=== PATIENT | female | born 2000 | race Caucasian/White ===

== ENCOUNTER 2025-01-08 13:14 | Emergency (ER) | payer OTHER ==
[~2025-01-08] VITALS: Ht 160 cm; Wt 69.0 kg
[2025-01-08 13:16] VITALS: O2SAT 97
[2025-01-08 13:48] VITALS: BP 124/73; PULSE 85; RESP 20; O2SAT 100
[2025-01-08 14:21] LABS: BASOPHILS % 0.4 % (0.0-2.0); EOSINOPHILS % 0.1 % (0.0-5.0); HEMATOCRIT. 40.7 % (36.0-48.0); HEMOGLOBIN. 13.1 g/dL (12.0-16.0); LYMPHOCYTES % 17.6 % (20.0-50.0); MEAN CORPUSCULAR HEMOGLOBIN 26.7 pg (28.0-32.0); MEAN CORPUSCULAR HGB CONC 32.2 g/dL (31.0-37.0); MEAN CORPUSCULAR VOLUME 82.8 fL (81.0-99.0); MEAN PLATELET VOLUME 8.7 fl (7.4-10.4); NEUTROPHILS % 75.9 % (40.0-76.0); PLATELET 240 x1000/uL (130-400); RED BLOOD CELL COUNT 4.91 mill/uL (4.2-5.4); RED CELL DISTRIBUTION WIDTH 15.7 % (11.6-14.6); WHITE BLOOD COUNT 11.2 x1000/uL (4.5-11.0)
[2025-01-08 14:30] LABS: CARBON DIOXIDE 27 mEq/L (21-32); CHLORIDE 103 mEq/L (98-107); POTASSIUM 3.7 mEq/L (3.5-5.1); SODIUM 136 mEq/L (136-145)
[2025-01-08 14:31] LABS: CALCIUM 9.9 mg/dL (8.7-10.4)
[2025-01-08 14:33] LABS: HCG SCREEN POSITIVE
[2025-01-08 14:36] LABS: CREATININE 0.5 mg/dL (0.6-1.0); GLUCOSE 85 mg/dL (70-105); UREA NITROGEN BLOOD 5 mg/dL (9-23)
[2025-01-08 14:50] LABS: CLARITY URINE CLEAR (CLEAR); COLOR URINE YELLOW (YELLOW); GLUCOSE URINE NEGATIVE (NEGATIVE); KETONES URINE 2+ (NEGATIVE); LEUKOCYTE ESTERASE URINE TRACE (NEGATIVE); NITRITE URINE NEGATIVE (NEGATIVE); OCCULT BLOOD URINE NEGATIVE (NEGATIVE); PROTEIN URINE NEGATIVE (NEGATIVE)
[2025-01-08 15:09] LABS: BACTERIA URINE TRACE; RBC URINE 0-2 /hpf (0-2); SQUAMOUS EPITHELIAL CELL URINE 2+ /lpf (RARE/1+); WBC URINE 0-2 /hpf (0-2); YEAST URINE NONE SEEN
[2025-01-08] MEDS ORDERED: CEPH500C2 MT (15:24)
[2025-01-08] MEDS ORDERED: CEPHALEXIN 250MG CAPSULE PO NR (15:30)
== END 2025-01-08 16:06 | disposition home or self-care (01) ==
LOC: ER 13:14
DX: O20.0 Threatened abortion (principal); O23.41 Unspecified infection of urinary tract in pregnancy, first trimester; I60.9 Nontraumatic subarachnoid hemorrhage, unspecified; Z3A.12 12 weeks gestation of pregnancy
CPT/HCPCS: 36415; 76801; 80048; 81003; 81025; 84703; 85025; 86850; 86900; 99284